=== PATIENT | male | born 1970 | race Caucasian/White ===

== ENCOUNTER 2019-02-14 16:48 | Emergency (ER) | payer OTHER, SELFPAY ==
[2019-02-14 17:02] VITALS: BP 128/77; PULSE 56; RESP 16; TEMP 36.7; O2SAT 100
--- NOTE | 2019-02-14 18:42 | ED.GENADUL_ITS ---
Discharge Plan Disposition Patient Disposition: HOME Condition: Stable Discharge Details Chief Complaint: HeadInjury Clinical Impression: Laceration of scalp, Head injury, acute, without loss of consciousness Primary Care Provider: None,None ED Provider: Dorys Lira Home Meds and New Rx's Prescriptions: No Action No Known Home Meds RF: 0 Discharge Instructions Instructions: Laceration (ED), Head Injury (ED) Additional Instructions: Keep the wound clean and dry. You can wash with shampoo or soap and water and be sure to pat dry. If you notice any signs of redness, swelling or pain, you can apply topical antibiotics. Return to the emergency department in 10 days for staple removal. Follow-up with your primary care doctor return to the emergency department if you develop any worsening or new concerning symptoms. Discharge Data Discharge Physician: Dorys Lira Medical Decision Making 48-year-old male presents with scalp laceration sustained after a wooden plank at the top of his head at work this morning. Tetanus up-to-date. Denies LOC or vomiting. There is a 3 cm straight laceration noted on the left frontoparietal aspect of head. Wound was irrigated well. As patient has no history of LOC, vomiting, no focal deficits, do not see an indication for CT head and he is agreeable. Wound anesthetized with 1% lidocaine without epi. 4 jodi placed. Antibiotic ointment placed. Patient advised to return to the ER in 10 days for staple removal. Usual and customary return precautions given prior to discharge. HPI General Mode of arrival: ambulatory . Date/Time Provider Initiated Documentation: 02/14/19 17:23 . Limitations to Documentation: no limitations . Information obtained by: patient . HPI Narrative: Patient is a 48-year-old male presents closure of scalp wound after head injury this morning. Patient states he was at work when a wooden plank hit the top of his head. He denies LOC, vomiting, dizziness. He states he developed a headache shortly after. He states he was seen in a nearby clinic and was advised to go to a nearby local hospital for wound closure but states he wanted to come closer to home so came here this evening. Tetanus up-to-date 2015. He admits to minimal headache at this time. He denies neck pain or any other injuries. Related Data Home Medications Medication Instructions Recorded Confirmed Unknown [No Known Home Meds] 02/14/19 02/14/19 Allergies Allergy/AdvReac Type Severity Reaction Status Date / Time No Known Allergies Allergy Unverified 08/20/15 07:31 General Stated Complaint: HeadInjury JOSE: 3 Review of Systems All systems reviewed & are unremarkable except as noted in HPI and below Constitutional Constitutional: Reports as per HPI, Denies chills and Denies fever(s) Eyes Eyes: Denies blurry vision ENT Ears, Nose, Mouth, and Throat: Denies dizziness, Denies sore throat and Denies throat swelling Cardiovascular Cardiovascular: Denies chest pain and Denies dyspnea Respiratory Respiratory: Denies cough and Denies dyspnea Gastrointestinal Gastrointestinal: Denies abdominal pain, Denies diarrhea and Denies vomiting Genitourinary Genitourinary: Denies hematuria and Denies dysuria Musculoskeletal Musculoskeletal: Denies back pain and Denies numbness Integumentary/Breasts Skin/Breast: Denies lesions and Denies rash Neurologic Neurologic: Denies dizziness, Denies focal weakness and Denies numbness Allergic/Immunologic Allergic/Immunologic: Denies throat swelling COUNT INCLUDES THE [facility] Medical History Rectal bleeding Tobacco dependence Social History Smoking/Tobacco Use Status: Current every day Tobacco Type: cigarettes Alcohol Intake: current Alcohol Intake frequency: 0-2 drinks per day Drug use: Daily Substance use type: marijuana Do you feel safe at home: Yes Do you feel safe in your relationship?: Yes Exam Const General: cooperative, healthy appearing and no acute distress [facility] Head: normal to inspection, no palpable skull fracture and normocephalic Head images: 1. 3 cm straight laceration noted on left frontoparietal aspect of head. Mild active oozing. No obvious foreign body noted. Ears: hearing grossly normal bilaterally, external ears normal and TM's normal bilaterally General nose exam: external nose normal Mouth: oral mucosae normal Eyes General: appearance normal, both eyes and all related structures Neck Neck: normal visual inspection Resp Effort & Inspection: normal respiratory effort and able to speak in complete se ntences Cardio Rate: regular rate Back/Spine/Pelvis Cervical Spine: cervical ROM normal and No cervical spinal tenderness Skin General skin exam: no rashes or lesions noted Neuro General: alert, awake and oriented x3 Cranial Nerves: CN's II-XI intact bilaterally Motor: muscle tone normal throughout and strength 5/5 throughout Extrem General: normal to inspection and full ROM Psych Appearance: grossly normal Affect: normal affect Course Vital Signs Vital signs: Vital Signs Temperature 98.1 F 02/14/19 17:02 Pulse 56 L 02/14/19 17:02 Respiratory Rate 16 02/14/19 17:02 Blood Pressure 128/77 02/14/19 17:02 Pulse Oximetry 100 02/14/19 17:02 Temperature 98.1 F 02/14/19 17:02 Temperature Source Tympanic 02/14/19 17:02 Pulse 56 L 02/14/19 17:02 Respiratory Rate 16 02/14/19 17:02 Respiratory Effort Non-Labored 02/14/19 17:18 Respiratory Depth Normal 02/14/19 17:18 Respiratory Pattern Normal 02/14/19 17:18 Blood Pressure 128/77 02/14/19 17:02 Blood Pressure Position Sitting 02/14/19 17:02 Pulse Oximetry 100 02/14/19 17:02 Oxygen Delivery Method Room Air 02/14/19 17:02 Oxygen Flow Rate 0 02/14/19 17:02 Procedures Laceration Laceration 1: Site: scalp Side (If applicable): left Size (cm): 3 Description: linear Depth: simple, single layer Local Anesthetic: Lidocaine 1% Amount of anesthesia used (mL): 5 Pre-repair: wound explored, irrigated extensively and deep structures intact Skin layer closed with: other (4 jodi) Technique: simple, interrupted
== END 2019-02-14 18:45 | disposition home or self-care (01) ==
PROVIDERS: Emergency Provider Physician Assistant
DX: S01.01XA Laceration without foreign body of scalp, initial encounter (principal); W20.8XXA Other cause of strike by thrown, projected or falling object, initial encounter
CPT/HCPCS: 12002

== ENCOUNTER 2019-02-25 09:48 | Emergency (ER) | payer OTHER, SELFPAY ==
[2019-02-25 09:52] VITALS: BP 136/80; PULSE 64; RESP 16; TEMP 36.7; O2SAT 100
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
== END 2019-02-25 10:10 | disposition home or self-care (01) ==
LOC: ER 10:11
PROVIDERS: Emergency Provider Emergency Medicine
DX: S01.01XD Laceration without foreign body of scalp, subsequent encounter (principal); W20.8XXD Other cause of strike by thrown, projected or falling object, subsequent encounter; Z48.02 Encounter for removal of sutures

== ENCOUNTER → 2023-02-18 17:17 | Outpatient (CLI) | payer BC, SELFPAY ==
--- NOTE | 2023-02-18 12:45 | DI.RAD_ITS ---
Exam(s) XR LUMBAR SPINE COMPLETE EXAM: XR LUMBAR SPINE COMPLETE CLINICAL HISTORY: evaluate pathology, M54.50 Low back pain. TECHNIQUE: 2D digital imaging was performed. Five views. COMPARISON: No exams were available for comparison FINDINGS: BONES: No compression fracture or destructive lesion. Vertebral body heights are maintained. Bilater al L5 spondylolysis mild L5-S1 spondylolisthesis. DISKS: Mild narrowing L5-S1 disc space. The remaining intervertebral disc spaces are maintained. SOFT TISSUE: Normal. 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 DATA REPOSITORY: RADIATION DOSE DELIVERED:
--- NOTE | 2023-02-18 12:46 | DI.RAD_ITS ---
Exam(s) XR HIP LT COMPLETE AP PELVIS EXAM: XR HIP LT COMPLETE AP PELVIS CLINICAL HISTORY: evaluate pathology, M25.552 Pain in left Hip. TECHNIQUE: 2D digital imaging was performed. Two views. COMPARISON: No exams were available for comparison FINDINGS: BONES: No acute fracture is present. No bony destructive lesion is seen. JOINTS: No dislocation present. Hip joint spaces are maintained. SI joints are unremarkable. Mini mal acetabular spurring. SOFT TISSUE: Normal. IMPRESSION: Minimal degenerative changes. DATA REPOSITORY: RADIATION DOSE DELIVERED:
--- NOTE | 2023-02-18 12:46 | DI.RAD_ITS ---
Exam(s) XR CHEST 2V PA LATERAL EXAM: XR CHEST 2V PA LATERAL CLINICAL HISTORY: evaluate pathology,R06.02 SOB TECHNIQUE: 2D digital imaging was performed. COMPARISON: CR XR HIP LT COMPLETE AP PELVIS from 02/18/2023 FINDINGS: HEART: Normal size. Aorta: Not dilated. PULMONARY VASCULATURE: Normal. LUNGS: Hyperinflated. Clear. PLEURAL SPACE: No pleural effusion or pneumothorax. BONE:Unremarkable for age. Soft tissues: Unremarkable. IMPRESSION: Hyperinflated lungs. No acute abnormality. DATA REPOSITORY: RADIATION DOSE DELIVERED:
== END ==
PROVIDERS: Visit Provider Nurse Practitioner Family
DX: J98.4 Other disorders of lung (principal); M16.12 Unilateral primary osteoarthritis, left hip
CPT/HCPCS: 71046; 72110; 73502

== ENCOUNTER 2023-04-09 04:22 | Outpatient (CLI) | payer BC, SELFPAY ==
[2023-04-09 12:43] LABS: ALT 30 U/L (16-63); AST 12 U/L (15-37); Albumin 3.5 g/dL (3.4-5.0); Alkaline Phosphatase 66 U/L (46-116); Anion Gap 4.9 mmol/L (3-11); BUN 14 mg/dL (7-18); Bilirubin, Total 0.6 mg/dL (0.2-1.0); CO2 32.1 mmol/L (21.0-32.0); CREATININE 0.8 mg/dL (0.70-1.30); Calcium 9.2 mg/dL (8.5-10.1); Calculated LDL 107 mg/dL (<100); Chloride 106 mmol/L (98-107); Cholesterol 206 mg/dL (<200); Estimated GFR 105.82 (mL/min/1.73m2); Glucose 92 mg/dL (74-106); HDL Cholesterol 93 mg/dL (40-60); Potassium 3.5 mmol/L (3.5-5.1); Sodium 143 mmol/L (136-145); Total Protein 6.5 g/dL (6.4-8.2); Triglyceride 34 mg/dL (<150)
== END 2023-04-09 04:23 | disposition home or self-care (01) ==
LOC: LOS 04:22
PROVIDERS: PCP Nurse Practitioner Family; Visit Provider Nurse Practitioner Family
DX: Z13.220 Encounter for screening for lipoid disorders (principal)
CPT/HCPCS: 36415; 80053; 80061

== ENCOUNTER 2023-04-14 05:01 | Outpatient (CLI) | payer BC, SELFPAY ==
[2023-04-14] MEDS: Levalbuterol HFA 15 GM INH 4 PUFF IH (11:47)
[2023-04-14] MEDS: Inhaler, Assist Device 1 EACH MC (11:48)
--- NOTE | 2023-04-14 12:48 | W.PFT ---
Date of service: 04/14/23 Time of Service: 10:20 Pulmonary Function Test Result Indications: COPD Interpretation Spirometry: There is moderate airflow limitation. There is a positive bronchodilator response. Lung Volumes: There is hyperinflation and air trapping Diffusion Capacity: Normal diffusion Airway Pressure: Increased airways resistance Impression Moderate airflow obstruction with air trapping and a normal diffusion. This is most consistent with COPD (chronic bronchitis) or asthma-COPD overlap syndrome. Clinical Correlation therefore is recommended.
== END 2023-04-14 05:02 | disposition home or self-care (01) ==
LOC: RT 05:01
PROVIDERS: PCP Nurse Practitioner Family; Visit Provider Nurse Practitioner Family
DX: J44.9 Chronic obstructive pulmonary disease, unspecified (principal)
CPT/HCPCS: 94060; 94726; 94729

== ENCOUNTER 2023-12-16 00:44 | Outpatient (CLI) | payer BC, SELFPAY ==
--- NOTE | 2023-12-16 14:50 | DI.US_ITS ---
APPROVED REPORT EXAM: Comprehensive 2D, Doppler, and color-flow Echocardiogram Patient Location: [facility] Consultant: Kayla Reyes RDCS (AE) Indications: Dyspnea, Pulmonary nodule, COPD Other Information Study Quality: Adequate. Technically limited study due to body habitus, lung disease, h/o smoking.. Conclusion Normal left ventricular wall thickness and chamber size. Estimated ejection fraction is 59%. Wall m otion is normal Normal right ventricular size and function Both atria are normal in size There is no structural or hemodynamically significant valvular disease Right ventricular systolic pressure could not be estimated Wall motion Left Ventricle Very low parasternal, history of smoking. The left ventricle is normal size. The left ventricular sys tolic function is normal. The left ventricular ejection fraction is within the normal range. There is normal left ventricular wall thickness. There is normal LV segmental wall motion. There is no ventri cular septal defect visualized. LVEF is 59%. Right Ventricle The right ventricle is normal size. The right ventricular systolic function is normal. Atria The left atrium size is normal. The right atrium size is normal. The interatrial septum is intact wit h no evidence for an atrial septal defect. Aortic Valve The aortic valve is normal in structure. Aortic valve is trileaflet. There is no aortic valvular sten osis. No aortic regurgitation is present. Mitral Valve The mitral valve is normal in structure. No evidence of mitral valve stenosis. Trace mitral regurgita tion. Tricuspid Valve The tricuspid valve is normal in structure. There is no tricuspid valve stenosis. Trace tricuspid reg urgitation. Unable to assess PA pressure. Pulmonic Valve The pulmonary valve is normal in structure. There is no pulmonic valvular stenosis. There is no pulmo milind valvular regurgitation. Great Vessels The aortic root is normal in size. The ascending aorta is normal in size. IVC is normal in size and c ollapses >50% with inspiration. Pericardium There is no pericardial effusion. 2D Dimensions IVSD d PLAX 0.78 cm M: 0.6-1.2 Ao Root d 3.22 cm M: 3.1 - 3.7 LVPW d PLAX 0.84 cm M: 0.6 - 1.2 Ao Asc Diam d 3.06 cm M: 2.6 - 3.4 LVID d PLAX 4.63 cm M: 4.2 - 5.8 LVDs 3.19 cm M: 2.5 - 4.0 LV EF Teichholz 59.0 % FS 31.21 % LV EDV (Teich) 99.0 mL LV ESV (Teich) 40.6 mL M-Mode TAPSE 2.64 cm (M/F) >1.7 Auto EF LV EDV A4C 125.7 mL LV EDV A2C 132.8 mL LV EDV BP 128.6 mL LV ESV A4C 52.1 mL LV ESV A2C 54.3 mL LV ESV BP 52.5 mL LVEF(%) A4C 58.6 % LVEF(%) A2C 59.1 % LVEF(%) BP 59.2 % LV SV A4C 73.6 ml LV SV A2C 78.5 ml LV SV BP 76.1 ml LV CO A4C 3.2 L/min LV CO A2C 3.4 L/min LV CO BP 3.3 L/min HR A4C 43.43 BPM HR A2C 43.48 BPM LV EDV Index (BP) LA Volume LA Length A4C 4.2 cm LA Length A2C 4.0 cm LA Area A4C s 13.74 cm2 LA Area A2C s 14.02 cm2 LA Vol A4C A-L 38.21 mL LA Vol A2C A-L 41.49 mL LA Vol Biplane A-L 40.7 mL LA Vol/BSA A4C A-L LA Vol/BSA A2C A-L LA Vol/BSA BP A-L 23.1 mL/m2 LA Vol A4C MOD 35.2 mL LA Vol A2C MOD 32.5 mL LA Vol BP MOD 34.1 mL RA Volume RA Area A4C 11.4 cm2 RA ESV A4C (A-L) 26.9mL RA Vol/BSA A4C A-L RA Length A4C 4.1 cm RA ESV A4C (MOD) 25.9mL LV Diastology MV E' medial 0.077 (>0.07 m/s) MV E Vmax 0.71 (0.4-1.3 m/s) MV E/E' MED 9.14 (<14) MV A Vmax 0.90 (0.4-1.3 m/s) MV E' lateral 0.113 (>0.1 m/s) E/A Ratio 0.8 MV E/E' LAT 6.25 (<14) MV E' Average 0.095 m/s MV E/E'(average) 7.42 Aortic Valve AoV Vmax 1.12 m/s LVOT Vmax 0.93 m/s AoV Peak Grad 5.0 mmHg LVOT Peak Grad 3.5 mmHg AoV Area (Vmax) 2.85 cm2 LVOT VTI 0.192 m AoV VTI 0.263 m LVOT Mean Grad 1.7 mmHg AoV Mean Sumit. 0.74 m/s LVOT SV 65.80 mL AoV Mean Grad 2.6 mmHg LVOT Diam s 2.05 cm AoV Area (VTI) 2.50 cm2 AV Regurg Peak Gr. 5.01 mmHg Velocity Ratio 0.83 Mitral Valve MV DT 183 (160-240 msec) MV Vmax TIPS 0.91 m/s MV Mean Grad 0.9 (<2mmHg) MV VTI 0.360 m Pulmonary Valve PV Vmax 0.74 (0.5-1.5 m/s) RVOT Vmax 0.60 m/s PV Peak Grad 2.2 mmHg RVOT Peak Gr. 1.4 mmHg PV Mean Sumit 0.50 m/s RVOT VTI 0.144 m PV Mean Grad 1.1 mmHg RVOT Mean Gr. 0.8 mmHg Tricuspid Valve RA Pressure 3.00 mmHg TV S' 0.16 m/s
== END 2023-12-16 01:04 ==
LOC: DI 00:44
PROVIDERS: PCP Nurse Practitioner Family; Visit Provider Physician Assistant Surgical
DX: R91.1 Solitary pulmonary nodule (principal); J44.9 Chronic obstructive pulmonary disease, unspecified
CPT/HCPCS: 93306